=== PATIENT | male | born 1940 | race African-American/Black ===

== ENCOUNTER 2018-10-21 21:13 | Inpatient (IN) | payer MEDICARE ==
--- NOTE | 2018-10-21 23:08 | RAD ---
RIGHT HIP TWO VIEW SERIES: 10/21/18 INDICATION: Fall with pain. FINDINGS: There is generalized heterogeneity of the osseous structures. No displaced fracture of the right hip is seen. IMPRESSION: Diffuse mottled appearance of the osseous structures which does raise suspicion for osseous metastati c disease. No obvious pathologic fracture of the right hip. Recommend followup with whole body bone scan as well as clinical assessment for further evaluation. POS: [facility]
--- NOTE | 2018-10-21 23:10 | RAD ---
LUMBAR SPINE THREE VIEWS: 10/21/18 INDICATION: Fall with pain. FINDINGS: There is generalized increased density in a mottled appearance of the osseous structures. No patholog ic compression fracture of the lumbar spine or significant subluxation visualized. There is a rounded calcific density of the right upper quadrant incidentally noted. This is a chronic finding and stabl e to prior imaging which dates back to 2014. IMPRESSION: Findings suspicious for diffuse osseous metastatic disease. Whole body bone scan is warranted to furt her evaluate. Stable chronic calcific density in the right upper abdomen. POS: SHANTI
--- NOTE | 2018-10-21 23:17 | RAD ---
FRONTAL CHEST LEFT RIB SERIES THREE VIEWS 10/21/18 INDICATION: Followup pain. FINDINGS: The cardiac silhouette is markedly enlarged. There is pleural based density inferiorly at the lateral right chest which could relate to pleural fluid versus pleural thickening. To a lesser extent a brett lar density is seen at the inferior left chest. There is a generalized increased density and mottled appearance of the osseous structures. No displaced rib fracture is seen within the left hemithorax. P rosthetic device overlies the cardiac silhouette. There are metallic clips overlying the upper abdome n. IMPRESSION: 1. Evidence to indicate osseous metastatic disease. Recommended dedicated whole body bone scan. 2. No displaced left rib fractures are seen. 3. Cardiomegaly likely related to CHF. There is associated edema with pleural fluid and pleural thickening bilaterally. POS: [facility]
[2018-10-21 23:59] LABS: ALT (SGPT) 20 U/L (8-55); AST (SGOT) 17 U/L (5-34); Albumin 3.3 g/dL (3.4-4.8); Alkaline Phosphatase 976 U/L (40-150); Anion Gap 20 mmol/L (10-20); BUN (Urea Nitrogen) 79 mg/dL (8.4-25.7); Bilirubin, Total 2.1 mg/dL (0.2-1.2); Calc. Creatinine Clearance 0 mL/min (70-130); Calcium 9.1 mg/dL (7.8-10.44); Carbon Dioxide 18 mmol/L (23-31); Chloride 99 mmol/L (98-107); Estimated GFR-MDRD 30; Glucose 123 mg/dL (83-110); Potassium 4.9 mmol/L (3.5-5.1); Protein, Total 6.3 g/dL (5.8-8.1); Sodium 132 mmol/L (136-145)
[2018-10-22 00:02] LABS: Band 6 % (5-11); Burr Cells SLIGHT = 2-5 cells (100X) (0-1/hpf); Hemoglobin 7.1 g/dL (14.0-18.0); Hypochromia SLIGHT = 6-15 cells (100X) (0-5/hpf); Lymphocytes 26 % (21-51); MDiff Complete? YES; Mean Corpuscular Hemoglobin 24.8 pg (27.0-31.0); Mean Corpuscular Volume 82.9 fL (78.0-98.0); Mean Platelet Volume 11.5 fL (7.4-10.4); Metamyelocyte 2 % (0-0); Microcytosis MODERATE=15-30 cells (100X) (0-5/hpf); Monocytes 11 % (0-10); Myelocyte 1 % (0-0); Neutrophil 54 % (42-75); Nucleated RBC 12 % (0); Ovalocytes SLIGHT = 2-5 cells (100X) (0-1/hpf); Platelet Count 100 thou/uL (130-400); Platelet Morphology Comment Appears Decreased; Polychromasia SLIGHT = 2-3 cells (100X) (0-2/hpf); Red Blood Cell (RBC) Count 2.87 mill/uL (4.70-6.10); White Blood Cell (WBC) Count 4.9 thou/uL (4.8-10.8)
[2018-10-22 00:21] LABS: CKMB 1.4 ng/mL (0-6.6)
[2018-10-22] MEDS ORDERED: Pantoprazole 40 MG VIAL ONE (01:59)
[2018-10-22 02:48] LABS: Bilirubin Negative (Negative); Blood, Urine Negative (Negative); Clarity CLEAR (Clear); Glucose, Urine (Dipstick) Negative (Negative); Leukocyte Negative (Negative); Nitrite Negative (Negative); Protein, Urine (Dipstick) Negative (Neg-Trace); Specific Gravity, Urine 1.016 (1.002-1.036)
[2018-10-22 02:55] LABS: Troponin I 0.042 ng/mL (< 0.028)
[2018-10-22 04:43] VITALS: BMI 30.4
[2018-10-22] MEDS ORDERED: Acetaminophen 325 MG TAB PO PRN (05:25)
[2018-10-22] MEDS: Sodium Chloride 0.9% 1,000 ML IV SCH ×2 (06:10→14:56)
[2018-10-22 07:29] LABS: Troponin I 0.056 ng/mL (< 0.028)
[2018-10-22] MEDS ORDERED: HYDROcodone/Acetaminophen 5/325 mg Tablet PO PRN (08:19)
[2018-10-22] MEDS ORDERED: Non-Formulary Item 1 EACH (Potassium Chloride [Potassium Chloride] 10 MEQ) PO SCH (09:00)
[2018-10-22] MEDS ORDERED: RANITIDINE HCL 150 MG PO SCH (09:00)
[2018-10-22] MEDS ORDERED: CHOLECALCIFEROL 125 MCG PO SCH (09:00)
[2018-10-22] MEDS: Atorvastatin Calcium 40 MG TAB PO SCH (09:15)
[2018-10-22] MEDS: Potassium Chloride 10 MEQ TAB PO SCH (09:15)
[2018-10-22] MEDS: Famotidine 20 MG TAB PO SCH ×2 (09:15→21:11)
[2018-10-22] MEDS: Folic Acid 1 MG TAB PO SCH (09:15)
[2018-10-22] MEDS: Furosemide 80 MG TAB PO SCH ×2 (09:15→21:11)
[2018-10-22] MEDS: Carvedilol 3.125 MG TAB PO SCH ×2 (09:15→21:10)
[2018-10-22 10:43] LABS: Hemoglobin 8.3 g/dL (14.0-18.0); Mean Corpuscular HGB CONC 30.1 g/dL (32.0-36.0); Mean Corpuscular Hemoglobin 24.8 pg (27.0-31.0); Mean Corpuscular Volume 82.3 fL (78.0-98.0); Mean Platelet Volume 5.1 fL (7.4-10.4); Platelet Count 95 thou/uL (130-400); RBC Distribution Width 25.1 % (11.5-14.5); Red Blood Cell (RBC) Count 3.36 mill/uL (4.70-6.10); White Blood Cell (WBC) Count 4.6 thou/uL (4.8-10.8)
[2018-10-22 11:34] LABS: Anisocytosis MODERATE=16-30 cells (100X) (0-5/hpf); Band 9 % (5-11); Hypochromia SLIGHT = 6-15 cells (100X) (0-5/hpf); Lymphocytes 22 % (21-51); MDiff Complete? YES; Metamyelocyte 4 % (0-0); Monocytes 11 % (0-10); Myelocyte 1 % (0-0); Neutrophil 49 % (42-75); Nucleated RBC 11 % (0); Ovalocytes SLIGHT = 2-5 cells (100X) (0-1/hpf); Platelet Morphology Comment Appears Decreased; Polychromasia MODERATE = 3-4 cells (100X) (0-2/hpf); Reactive Lymphocytes 2 % (0-10); Spherocytes SLIGHT = 1-5 cells (100X) (None Seen)
[2018-10-22 11:56] LABS: ALT (SGPT) 19 U/L (8-55); AST (SGOT) 18 U/L (5-34); Albumin 3.3 g/dL (3.4-4.8); Alkaline Phosphatase 950 U/L (40-150); Anion Gap 20 mmol/L (10-20); BUN (Urea Nitrogen) 72 mg/dL (8.4-25.7); Bilirubin, Total 2.3 mg/dL (0.2-1.2); Calc. Creatinine Clearance 40 mL/min (70-130); Calcium 9.5 mg/dL (7.8-10.44); Carbon Dioxide 18 mmol/L (23-31); Chloride 100 mmol/L (98-107); Estimated GFR-MDRD 35; Globulin 3.6 g/dL (2.4-3.5); Glucose 111 mg/dL (83-110); Potassium 4.8 mmol/L (3.5-5.1); Protein, Total 6.9 g/dL (5.8-8.1); Sodium 133 mmol/L (136-145)
--- NOTE | 2018-10-22 21:43 | HP ---
CHIEF COMPLAINT: Right hip pain and back pain and generalized weakness. HISTORY OF PRESENT ILLNESS: This is a 78-year-old gentleman with a relatively recent diagnosis of metastatic bone cancer, who has had several months of worsening back and hip pain who has suffered 2 to 3 falls at home. They were from a standing height where he lost his balance or slipped at home and landed on his right side. The home health nurses were concerned that he fractured his hip and they had him go to the emergency department for further evaluation. In the emergency department, he did not have any acute hip or lumbar fracture. He did complain of some chest wall pain too and the rib x-rays did not reveal any fracture, but all x-rays did show evidence of diffuse metastatic bone disease. The patient was recently admitted in August 2018 for intractable back and hip pain at that time and it was then when he was found to have elevated PSA and metastatic bone disease and bone biopsy have been done revealing non-small cell carcinoma with unknown primary. The patient has followed up with Dr. Casey for Urology and Dr. Salvador Ross for Oncology and is pending a prostate biopsy to rule out a prostate origin of his cancer. The patient has been doing relatively okay at home except for the frequent falls and the patient wants to remain at home as long as possible. He states that his pain is under better control with the fentanyl patches that he has at home, but is anxious to get further workup on his cancer. PAST MEDICAL HISTORY: Remote history of renal cell carcinoma, status post left nephrectomy in 2011; type 2 diabetes; hypertension; hyperlipidemia; [id number] aortic stenosis; congestive heart failure; rheumatoid arthritis; status post aortic valve replacement. PAST SURGICAL HISTORY: Left nephrectomy in 2011, appendectomy in 1986, I and D of postoperative left flank abscess in 2013, aortic valve replacement in 2012. ALLERGIES: TO PENICILLIN AND SULFAMETHOXAZOLE. IMMUNIZATIONS: Up-to-date. FAMILY HISTORY: Father . Mother with hypertension and heart disease. Siblings with hypertension, heart disease, and diabetes. SOCIAL HISTORY: He is . 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 No smoking. No alcohol. He is back to walking, but with assistance. MEDICATIONS: At home include: 1. Furosemide 80 mg b.i.d. 2. Vitamin D3 daily. 3. Folic acid daily. 4. Hydrocodone 5/325 b.i.d. p.r.n. breakthrough pain. 5. Fentanyl patch 25 mcg to be changed every 3 days. 6. Duloxetine 20 mg daily. 7. Carvedilol 3.125 mg b.i.d. 8. Potassium chloride 10 mEq daily. 9. Ranitidine 150 mg b.i.d. 10. Atorvastatin 40 mg daily. REVIEW OF SYSTEMS: As per the history of present illness. PHYSICAL EXAMINATION: GENERAL: He denies any recent fevers, chills, or recent illness. HEENT: He denies headache, visual or hearing changes. Denies congestion or allergy symptoms. CARDIAC: Denies chest pain, shortness of breath, or palpitations. PULMONARY: Denies cough or shortness of breath. GI: Denies nausea, vomiting, abdominal pain, melena, or hematochezia. : History of some BPH symptoms, but no dysuria or hematuria. NEUROLOGIC: Positive weakness. Positive falls at home. No syncope. No seizure activity. MUSCULOSKELETAL: Continues to have chronic back and hip and now anterior chest wall pain. LABORATORY DATA: White blood cell count 4600, hemoglobin and hematocrit 8.3 and 27.7 following a transfusion of 1 unit of packed red blood cells, platelets of 95. Sodium 133, potassium 4.8, chloride 100, CO2 of 18, BUN and creatinine 72 and 2.24 with a GFR of 35, serum glucose of 111, total bilirubin elevated at 2.3, alkaline phosphatase elevated at 950. Troponin I then indeterminate from 0.057, 0.042, and 0.056. Albumin is 3.3. Urinalysis was negative. DIAGNOSTIC DATA: Again, hip, lumbar, and rib x-ray showed no acute fracture, but metastatic bone disease throughout. ASSESSMENT AND PLAN: This is a 78-year-old gentleman with known non-small cell carcinoma of the bone with unknown primary, now with persistent pain in his back and hip. 1. 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 Further workup per Oncology and Urology, possible proceeding with prostate biopsy if seems necessary by Dr. Casey. 2. Bone pain. We will continue fentanyl and hydrocodone for breakthrough pain. 3. Coronary artery disease with history of congestive heart failure. We will continue current medications including carvedilol and Lasix p.r.n. 4. Type 2 diabetes. Due to decreased appetite, it has not been an issue. We will continue to monitor closely. 5. Stage 4 chronic kidney disease. I will continue to monitor. It does not seem like it has worsened since his last admission. 6. Disposition. Discussed with the patient about placement. He desires to remain at home as long as possible. May need to get Order Clerk involved for further assistance with himself and with his at home. Job ID: [id number]
[2018-10-22] MEDS: Fluticasone Propionate Nasal Spray 16 gm Bottle NASAL PRN (22:36)
[2018-10-23] MEDS: HYDROcodone/Acetaminophen 5/325 mg Tablet PO PRN (06:40)
--- NOTE | 2018-10-23 08:42 | PRG ---
DATE OF SERVICE: 10/23/2018 SUBJECTIVE: The patient complains of pain throughout his body, worse in his knees. He states that due to the cold weather, continues have pain in his back and hips and rib cage as well. The patient is wanting to go home and now declining further workup including prostate biopsy and colonoscopy. OBJECTIVE: VITAL SIGNS: Temperature 97.2, pulse of 85, respirations 17, blood pressure 125/60, and pulse oximetry 97% on room air. GENERAL: He is awake and alert, in no acute distress. HEENT: Mucosa is moist. NECK: Supple. HEART: Regular rate and rhythm. LUNGS: Clear bilaterally. ABDOMEN: Soft. EXTREMITIES: With painful range of motion of his legs and arms. Tenderness on his ribcage. LABORATORY DATA: Pending. Stool guaiac was negative yesterday. ASSESSMENT: This is a 78-year-old gentleman with history of type 2 diabetes, hypertension, cardiomyopathy, remote history of a renal cell carcinoma in 2011, now with recently diagnosed metastatic non-small cell carcinoma to the bone with unknown primary. The patient was admitted for worsening bone pain and rule out fracture. He initially wanted to proceed with a prostate biopsy, but now is rethinking the process. We will discuss with Oncology and Urology about options. The patient is willing to discuss with hospice about comfort measures at this time and is most wanting to go home. PLAN: We will consult hospice for evaluation and plan for discharging home. Continue his current medications. I will discuss with Dr. Salvador Ross for Oncology as well as Dr. Casey Addendum: I spoke with Dr. Ross and Carmela. If we can determine whether it is prostate cancer, it is possible that treatment would not too negatively affect the quality of his life. Will discuss with Dr. Casey about possibly proceeding with the biopsy before he goes home with hospice. Job ID: [id number] [facility]
[2018-10-23 08:51] LABS: Anion Gap 18 mmol/L (10-20); BUN (Urea Nitrogen) 67 mg/dL (8.4-25.7); Calc. Creatinine Clearance 41 mL/min (70-130); Carbon Dioxide 17 mmol/L (23-31); Chloride 102 mmol/L (98-107); Estimated GFR-MDRD 36; Glucose 125 mg/dL (83-110); Potassium 4.3 mmol/L (3.5-5.1); Sodium 133 mmol/L (136-145)
[2018-10-23] MEDS: Folic Acid 1 MG TAB PO SCH (10:12)
[2018-10-23] MEDS: Famotidine 20 MG TAB PO SCH ×2 (10:13→20:42)
[2018-10-23] MEDS: Carvedilol 3.125 MG TAB PO SCH ×2 (10:13→20:43)
[2018-10-23] MEDS: Furosemide 80 MG TAB PO SCH ×2 (10:13→20:43)
[2018-10-23] MEDS: Atorvastatin Calcium 40 MG TAB PO SCH (10:13)
[2018-10-23] MEDS: Potassium Chloride 10 MEQ TAB PO SCH (10:13)
[2018-10-23] MEDS: Fluticasone Propionate Nasal Spray 16 gm Bottle NASAL PRN (10:15)
--- NOTE | 2018-10-23 10:40 | PQF ---
MILY HASSAN COLIN ODOM DO [id number] CLINICAL DOCUMENTATION IMPROVEMENT CLARIFICATION FORM: ICD-10 Updated PLEASE DO AN ADDENDUM TO THE PROGRESS NOTE WITH ANY DOCUMENTATION UPDATES OR ADDITIONS AND CARRY THROUGH TO DC SUMMARY. THANK YOU. DATE: 10/23/2018 ATTN: DR. ODOM Please exercise your independent, professional judgment in responding to the clarification form. Clinical indicators are provided on the bottom of this form for your review Please check appropriate box(s): HEART FAILURE..... A. TYPE: [ ] Systolic / HFrEF [ ] Diastolic / HFpEF [ xx ] Combined Systolic / Diastolic B. ACUITY: [ ] Acute [ ] Acute on Chronic [ xx ] Chronic [ ] Other diagnosis [ ] Unable to determine For continuity of documentation, please document condition throughout progress notes and discharge summary. Thank You. CLINICAL INDICATORS - SIGNS / SYMPTOMS / LABS: *10/22-ER: CHEST X-RAY SHOWS CARDIOMEGALY. *10/22-PN: TROPONIN-I THEN INDETERMINATE FROM 0.057, 0.042, AND 0.056. *HX CHF.... HOME MEDS INCLUDE: CARVEDILOL and LASIX 80 BID *HX AVR and MOD TO SEV AORTIC STENOSIS and HTN. RISKS: *10/22-PN: History of CAD and History of CHF *History of non-small cell carcinoma of the bone *DM2 *Chronic Kidney Disease; stage 4 TREATMENTS: *ADMINISTRATION OF HOME MEDICATIONS INCLUDING - LASIX and CARVEDILOL *Close Monitoring Thank You, Layne (This form is maintained as a part of the permanent medical record) 2015 [employer], [employer]. All Rights Reserved Layne Rodriguez RN, CDIS [email or web address] [phone] [facility]
[2018-10-23] MEDS ORDERED: Fleet Enema 133 ML BOT PR SCH (12:21)
[2018-10-23 12:33] LABS: Anisocytosis MODERATE=16-30 cells (100X) (0-5/hpf); Band 14 % (5-11); Hemoglobin 8.3 g/dL (14.0-18.0); Hypochromia MODERATE=16-30 cells (100X) (0-5/hpf); Lymphocytes 21 % (21-51); MDiff Complete? YES; Mean Corpuscular HGB CONC 29.8 g/dL (32.0-36.0); Mean Corpuscular Hemoglobin 24.9 pg (27.0-31.0); Mean Corpuscular Volume 83.6 fL (78.0-98.0); Mean Platelet Volume 6.4 fL (7.4-10.4); Monocytes 12 % (0-10); Myelocyte 1 % (0-0); Neutrophil 50 % (42-75); Nucleated RBC 6 % (0); Platelet Count 91 thou/uL (130-400); Platelet Morphology Comment Appears Decreased; Polychromasia MODERATE = 3-4 cells (100X) (0-2/hpf); RBC Distribution Width 25.1 % (11.5-14.5); Reactive Lymphocytes 2 % (0-10); Red Blood Cell (RBC) Count 3.34 mill/uL (4.70-6.10); White Blood Cell (WBC) Count 3.5 thou/uL (4.8-10.8)
--- NOTE | 2018-10-23 13:09 | CON ---
DATE OF CONSULTATION: 10/23/2018 CONSULTING PHYSICIAN: Dr. Gerhard Renee. CONSULTED PHYSICIAN: Dr. Casey. REASON FOR CONSULTATION: Metastatic cancer, likely prostatic in origin with intractable bone pain. HISTORY OF PRESENT ILLNESS: Mr. Julian is a 78-year-old black male, who is well known to me for a diagnosis of metastatic cancer to multiple sites on his skeleton with history of worsening back and hip pain and reported falls at home. He had seen me as an outpatient and his PSA was 91, and he has a significantly irregular prostate exam. All signs point to that he likely has metastatic prostate cancer, but he does not yet have a tissue diagnosis. He did undergo a bone biopsy demonstrating a non-small cell cancer, which was poorly differentiated, not conclusively specific to the prostate in origin. He was scheduled for an outpatient prostate biopsy, but unfortunately has to come back into the hospital due to intractable pain. He does have a history of renal cell carcinoma in the remote past, but has had no recurrence from this. Dr. Ross is his oncologist and agrees with moving forward with a prostate biopsy in order to start chemo and androgen deprivation. The patient was admitted. He does have chronic kidney disease stage 4, as well as mildly elevated troponin. I have discussed with Dr. Renee and Dr. Renee does not see that this is a significant problem as the patient has a long history of mildly elevated troponins in the past. He has not received any anticoagulation or anti-platelet therapy at this time. When he was last in my office, the patient stated that he was still urinating okay and denied any hematuria. His primary problem is still his pain. He is not having any urinary tract infections. He did have x-rays on this admission, but it did not demonstrate any fractures secondary to his recent fall, but he still has diffuse osseous metastatic disease. PAST MEDICAL HISTORY: 1. History of renal cell carcinoma. 2. Type 2 diabetes. 3. Hypertension. 4. Hyperlipidemia. 5. Aortic stenosis. 6. CHF. 7. Rheumatoid arthritis. 8. Metastatic cancer likely prostatic in origin. PAST SURGICAL HISTORY: 1. Left nephrectomy. 2. Appendectomy. 3. Aortic valve replacement. 4. Left flank abscess incision and drainage. HOME MEDICATIONS: 1. Lasix. 2. Vitamin D3. 3. Folate. 4. [place]. 5. Tramadol. 6. Duloxetine. 7. Carvedilol. 8. Potassium chloride. 9. Ranitidine. 10. Atorvastatin. ALLERGIES: 1. PENICILLIN. 2. SULFAMETHOXAZOLE. FAMILY HISTORY: Noncontributory for prostate cancer, but is significant for hypertension and heart disease. SOCIAL HISTORY: He is . He previously worked as a court officer. He denies smoking, alcohol abuse, or illicit drugs. He does walk with assistance and is able to live at home currently. REVIEW OF SYSTEMS: A 12-point review of systems was reviewed and otherwise negative other than his complaints of bony pains and some weakness. He denies any chest pain, shortness of breath, nausea, vomiting, or fevers. He denies any diarrhea or hematochezia. Remainder of 12-point review of systems was reviewed and otherwise negative. PHYSICAL EXAMINATION: VITAL SIGNS: Temperature 98.4, pulse 88, respirations 18, blood pressure 124/60, and saturation 97% on room air. GENERAL: No apparent distress. Somewhat somnolent, but answering questions appropriately. Well nourished, well developed. HEENT: Normocephalic and atraumatic. Sclerae nonicteric. Pupils symmetric and round. Moist mucous membranes. CARDIOVASCULAR: Regular rate and rhythm. Normal S1 and S2. Systolic murmur. CHEST: No increased work of breathing. Symmetric expansion of lungs. Clear anteriorly. ABDOMEN: Soft, nontender, and nondistended. Positive bowel sounds. : Rectal exam was deferred as this has previously already been done. EXTREMITIES: No clubbing, cyanosis, or edema. The patient is complaining of significant pain in his knees and hips. There is no obvious joint deformities or joint erythema noted. SKIN: Warm and dry. Good turgor. No rashes or lesions. PSYCHIATRIC: Alert and oriented x3. Again, somewhat somnolent, but otherwise appropriate. NEUROLOGIC: Cranial nerves 2 through 12 appear grossly intact. Coordination and gait were not tested. LABORATORY DATA: On laboratory evaluation, the full set of labs are in the [employer] system, which I have reviewed. Of note, the patient's white count is 4.6 with hemoglobin 8.3, platelet count of 95,000. Creatinine is currently 2.17, sodium of 133, troponin was last checked yesterday at 0.056. ASSESSMENT AND PLAN: A 78-year-old black male with likely metastatic prostate cancer based on his history and presentation with previous lab findings. Again, he had a previously reported PSA of 91. Given that he is back in the hospital with recurrent and intractable pain, I think it is best to go ahead and move forward with a prostate biopsy at this time. He is not on any anticoagulation nor his labs sufficiently bad enough to preclude a prostate biopsy, which is relatively a simple procedure. Given his comorbidities, I think we will do this without anesthesia as this was originally planned to be done in the office. I will have the nurse give him an enema stat so that he can have his rectum cleaned out and we will start him on his antibiotic with the Rocephin injection. The patient can then go down for his prostate biopsy, which we will perform here and then he can come back up to the medical floor back to Dr. Renee's care. The biopsy results will probably take anywhere from 3 to 5 days to result. At which time, once we have confirmation that if this is indeed prostate cancer, we can begin him on the chemotherapeutic and androgen deprivation regimens necessary to control his disease and hopefully give him some palliation for his intractable pain. I will continue to follow along and make recommendations as necessary. The risks and benefits have previously been discussed with the patient regarding prostate biopsy, including risks of sepsis, difficulty urinating, significant bleeding, and need for transfusion. I have discussed these again today with the patient and he states he is still willing to go forward as he needs to get his biopsy done. Job ID: [id number]
[2018-10-23] MEDS ORDERED: Lidocaine 1% w/Epinephrine 1:100K 20 ML VIAL ONE (13:55)
[2018-10-23] MEDS ORDERED: Lidocaine 1% (PF) 30 ML VIAL ONE (13:55)
[2018-10-23] MEDS ORDERED: cefTRIAXone\\ROCEPHIN 1 GM VIAL ONE (14:51)
[2018-10-23] MEDS ORDERED: Fentanyl 100 MCG/2 ML VIAL ONE (15:01)
--- NOTE | 2018-10-23 16:11 | OP ---
DATE OF PROCEDURE: 10/23/2018 SERVICES: Urology. PREOPERATIVE DIAGNOSIS: Elevated PSA with metastatic cancer to the bone. POSTOPERATIVE DIAGNOSIS: Elevated PSA with metastatic cancer to the bone. PROCEDURE PERFORMED: Transrectal ultrasound-guided prostate biopsy. INDICATION FOR PROCEDURE: Mr. Julian is a 78-year-old black male with an elevated PSA, diffuse osseous metastatic disease with unknown primary. His PSA is up to 91, and he has a significantly irregular prostate exam. A biopsy of one of the bony lesions demonstrated a poorly-differentiated non-small cell carcinoma, but could not be identified his prostatic origin. As such, we had planned an outpatient prostate biopsy, but the patient was readmitted due to intractable pain and falls. Since he is here, his primary care doctor has requested that we go ahead and perform prostate biopsies, which he is being brought for today. He has received antibiotics and received an enema prior to coming down. He is not taking any blood thinners. DESCRIPTION OF PROCEDURE: After identification of armband and verification of consent, the patient was brought back to the operating room, where he underwent nurse monitoring only. He did not require any anesthesia. He was placed in the left lateral decubitus position. Transrectal ultrasound probe was placed into the patient's rectum and ultrasonography of the prostate performed. The prostate was diffusely irregular with multiple hypoechoic patches. The prostate measured 4.8 cm in length, 3.8 cm in width, and 3.2 cm in height for a volume of 28.4 mL. 1% Xylocaine was injected at 4 points around the prostate for a total of 10 mL injected. After adequate anesthesia, prostate biopsies were taken with prostate biopsy needle for a total of 6 biopsies. During ultrasonography, it was noted that the prostate was extremely fixed and nonmobile, indicating likely locally advanced prostate cancer. The patient had minimal bleeding and the ultrasound was removed. The patient was then returned back to the supine position and taken back to his room in stable condition. COMPLICATIONS: None. ESTIMATED BLOOD LOSS: Minimal. RETAINED TUBES AND DRAINS: None. SPECIMENS: Prostate biopsies. DISPOSITION: The patient will be kept in the hospital under Dr. Renee's service. I will check on him again tomorrow, but the results probably not be available for about 3 to 5 days. We will then coordinate the results with Dr. Ross, his oncologist, as well as primary care physician and arrange for his subsequent treatment, pending confirmation that he does indeed have metastatic prostate cancer. Job ID: [id number]
[2018-10-24] MEDS: Potassium Chloride 10 MEQ TAB PO SCH (07:53)
[2018-10-24] MEDS: Carvedilol 3.125 MG TAB PO SCH (07:53)
[2018-10-24] MEDS: Atorvastatin Calcium 40 MG TAB PO SCH (07:53)
[2018-10-24] MEDS: Folic Acid 1 MG TAB PO SCH (07:53)
[2018-10-24] MEDS: Furosemide 80 MG TAB PO SCH ×2 (07:54→15:01)
[2018-10-24] MEDS: Famotidine 20 MG TAB PO SCH (08:06)
[2018-10-24] MEDS: HYDROcodone/Acetaminophen 5/325 mg Tablet PO PRN (08:11)
--- NOTE | 2018-10-24 08:44 | PRG ---
DATE OF SERVICE: 10/24/2018 SUBJECTIVE: The patient is complaining of bilateral knee pain that seems to be getting worse over the past two days. Pain in his back and hip seem to be better, has rib cage pain, has not bother him as much. He complains of congestion in his nasal area, but no chest pain or shortness of breath. He tolerated the biopsies yesterday and is anxious for the results. OBJECTIVE: VITAL SIGNS: Temperature 97.4, pulse of 87 to 93, respirations 18, blood pressure 109/66, pulse ox was 93% on 2 L. GENERAL: He is awake and alert, in no acute distress. Speech is clear. NECK: Supple. HEART: Regular rate and rhythm. LUNGS: Clear. ABDOMEN: Obese and soft. EXTREMITIES: No edema. He has exquisite tenderness in both knees, some warmth, but dressings are placed. Effusion bilaterally. LABORATORY DATA: Pending from this morning. Prostate biopsies are pending. ASSESSMENT AND PLAN: This is a 78-year-old gentleman with a history of metastatic non-small cell carcinoma of unknown primary, history of renal cell carcinoma and likely prostate carcinoma at this time with the biopsy results pending. 1. Metastatic non-small cell carcinoma to the bone. Awaiting prostate biopsies. 2. Bone pain. We will continue pain medicines with fentanyl and hydrocodone. 3. Knee pain. Possible history of gout as per Dr. Carson. We will check uric acid level as well as x-rays. Also has a history of rheumatoid arthritis. 4. Coronary artery disease with history of congestive heart failure. We will continue his current treatment. 5. Stage 4 chronic kidney disease that appears to be stable. 6. Anemia has improved after 1 unit of packed red blood cells two days ago. We will continue to monitor for any further bleeding. DISPOSITION: Hopefully being able to go home tomorrow. The patient wishes to speak with hospice about different options and we will ensure that happens prior to his discharge home. Job ID: [id number]
--- NOTE | 2018-10-24 09:44 | RAD ---
LEFT KNEE 4 VIEWS: HISTORY: Left knee pain. FINDINGS: There are marked degenerative changes manifested by osteophyte formation and joint space narrowing mo st prominent in the medial tibiofemoral and patellofemoral compartments. No acute fracture or disloc ation or bony destruction is seen. There is an old avulsion fracture of the lateral tibial spine. IMPRESSION: Left knee osteoarthritis. POS: [facility]
--- NOTE | 2018-10-24 09:47 | RAD ---
RIGHT KNEE FOUR VIEWS OBTAINED WITH PORTABLE TECHNIQUE: INDICATIONS: Knee pain. FINDINGS: Moderate degenerative changes are noted. There is loss of medial joint space. There is spurring fro m all joint compartments, with spurring seen from the femoral condyles, the tibial condyles, and the tibial spines. Prominent spurring and loss of joint space at the patellofemoral joint. Evidence of joint effusion i s seen in the suprapatellar region. IMPRESSION: Moderate to severe degenerative changes, right knee, with joint effusion. POS: OFF
[2018-10-24 10:03] LABS: Anion Gap 19 mmol/L (10-20); BUN (Urea Nitrogen) 63 mg/dL (8.4-25.7); Calc. Creatinine Clearance 41 mL/min (70-130); Calcium 8.9 mg/dL (7.8-10.44); Carbon Dioxide 19 mmol/L (23-31); Chloride 101 mmol/L (98-107); Estimated GFR-MDRD 36; Glucose 121 mg/dL (83-110); Potassium 4.4 mmol/L (3.5-5.1); Sodium 135 mmol/L (136-145)
[2018-10-24] MEDS: Fluticasone Propionate Nasal Spray 16 gm Bottle NASAL PRN (10:13)
[2018-10-24] MEDS ORDERED: Colchicine 0.6 MG TAB PO SCH (11:00)
[2018-10-24 11:07] LABS: Band 6 % (5-11); Elliptocytes SLIGHT = 2-5 cells (100X) (0-1/hpf); Eosinophils 2 % (0-10); Hemoglobin 8.2 g/dL (14.0-18.0); Hypochromia SLIGHT = 6-15 cells (100X) (0-5/hpf); Lymphocytes 10 % (21-51); MDiff Complete? YES; Mean Corpuscular HGB CONC 30.4 g/dL (32.0-36.0); Mean Corpuscular Hemoglobin 25.9 pg (27.0-31.0); Mean Corpuscular Volume 85.2 fL (78.0-98.0); Mean Platelet Volume 6.3 fL (7.4-10.4); Monocytes 16 % (0-10); Neutrophil 66 % (42-75); Nucleated RBC 8 % (0); Ovalocytes SLIGHT = 2-5 cells (100X) (0-1/hpf); Platelet Count 87 thou/uL (130-400); Platelet Morphology Comment Appears Decreased; Polychromasia MODERATE = 3-4 cells (100X) (0-2/hpf); RBC Distribution Width 25.6 % (11.5-14.5); Red Blood Cell (RBC) Count 3.16 mill/uL (4.70-6.10); White Blood Cell (WBC) Count 4.8 thou/uL (4.8-10.8)
[2018-10-24 17:30] VITALS: TEMP 97.7
[2018-10-24 18:22] VITALS: BP 109/55
--- NOTE | 2018-10-25 00:58 | DIS ---
DATE OF ADMISSION: 10/22/2018 DATE OF DISCHARGE: 10/24/2018 ADMISSION DIAGNOSIS: Worsening hip pain and back pain. DISCHARGE DIAGNOSIS: Metastatic prostate cancer to the bone. CONSULTATIONS: Dr. Casey for Urology, x-rays of the hip, spine and ribs, prostate biopsy, knee x-ray. HOSPITAL COURSE: This is a 78-year-old gentleman with a history of renal cell carcinoma status post nephrectomy, type 2 diabetes, hypertension, hyperlipidemia, congestive heart failure, rheumatoid arthritis status post aortic valve replacement, who was recently diagnosed with metastatic bone cancer. He underwent a bone biopsy on his last admission, which revealed non-small cell carcinoma of unknown primary. He was scheduled for outpatient prostate biopsy with Dr. Casey, but was readmitted this time for worsening hip pain following a fall at home. In the ED, he underwent x-rays which showed no fracture but was not able to be discharged home due to his intractable pain. His pain was managed with analgesia and the pain was doing better. It was discussed with Dr. Ross and Dr. Casey about possibly proceeding with hospice. After those discussions, it was decided to go ahead with the prostate biopsies to get assure definitive diagnosis as far as this is the source of his cancer. The family and the patient agreed to proceed with prostate biopsy, and Dr. Casey felt like his risk was satisfactory at this time. He underwent prostate biopsy with no complications. He tolerated it well and the biopsy did reveal prostate adenocarcinoma. The patient remained stable throughout his hospitalization. He did complain of sudden onset of bilateral knee pain, worse in the right with knee effusion. He does have a history of gout and was treated by Dr. Carson in the past. His x-rays just revealed degenerative joint disease with effusion on the right. He did have elevated uric acid level and was given a dose of colchicine with significant improvement of his knee pain. After discussion with the son and the patient has decided that he wanted to go home with outpatient followup with Dr. Casey, as well as with Dr. Ross to discuss treatment options. He was discharged home in good condition. DISCHARGE PHYSICAL EXAMINATION/OBJECTIVE: VITAL SIGNS: Temperature 98.0, pulse of 84, respirations 18, blood pressure 103/61, and pulse ox is 94% on room air. GENERAL: He is awake and alert. No acute distress. Speech is clear. NECK: Supple. HEART: Regular rate and rhythm. LUNGS: Clear. ABDOMEN: Obese, soft. EXTREMITIES: With painful range of motion of his knees, but improved from this morning. Still has slight effusion in the right knee. LABORATORY DATA: Sodium 135, potassium 4.4, chloride 101, CO2 of 19, BUN and creatinine 63 and 2.17 with a GFR of 36. Serum glucose was 121. Uric acid was elevated at 18, calcium of 8.9. Urinalysis was normal. White blood cell count 4800. Hemoglobin and hematocrit 8.2 and 26.9, which is stable after his transfusion. Platelet count of 87. DISCHARGE MEDICATIONS: Include: 1. [place] 5/325 b.i.d. p.r.n. severe pain. 2. Lipitor 40 mg daily. 3. Carvedilol 3.125 mg b.i.d. 4. Cymbalta 20 mg daily. 5. Pepcid 20 mg b.i.d. 6. Duragesic patch 25 mcg every 3 days. 7. Flonase daily. 8. Folic acid 1 mg daily. 9. Lasix 80 mg b.i.d. 10. Potassium chloride 10 mEq daily. 11. Colchicine 0.6 mg daily p.r.n. gout pain. FOLLOWUP INSTRUCTIONS: The patient is to follow up with Dr. Ross in 1 to 2 weeks. Follow up with Dr. Casey in 2 weeks. Follow up with myself in 1 to 2 weeks as well. Job ID: [id number]
== END 2018-10-24 18:49 | disposition home health service (06) | DRG 948 ==
LOC: ERS 21:13 → 2NO 10-22 04:04 → T4-B 10-23 19:05
PROVIDERS: ADMIT Family Medicine; ATTEND Family Medicine
PROC: 30233N1 Transfusion of Nonautologous Red Blood Cells into Peripheral Vein, Percutaneous Approach (ICD-10-PCS; 2018-10-22)
PROC: 0VB07ZX Excision of Prostate, Via Natural or Artificial Opening, Diagnostic (ICD-10-PCS; principal; 2018-10-23)
DX: G89.3 Neoplasm related pain (acute) (chronic) (principal); C79.51 Secondary malignant neoplasm of bone; I13.0 Hypertensive heart and chronic kidney disease with heart failure and stage 1 through stage 4 chronic kidney disease, or unspecified chronic kidney disease; N18.4 Chronic kidney disease, stage 4 (severe); I50.42 Chronic combined systolic (congestive) and diastolic (congestive) heart failure; C61 Malignant neoplasm of prostate; E78.5 Hyperlipidemia, unspecified; E11.22 Type 2 diabetes mellitus with diabetic chronic kidney disease; M06.9 Rheumatoid arthritis, unspecified; I25.10 Atherosclerotic heart disease of native coronary artery without angina pectoris; D64.9 Anemia, unspecified; M10.9 Gout, unspecified; M17.11 Unilateral primary osteoarthritis, right knee; R29.6 Repeated falls; Z85.528 Personal history of other malignant neoplasm of kidney; Z90.5 Acquired absence of kidney; Z95.2 Presence of prosthetic heart valve; Z88.0 Allergy status to penicillin; Z88.2 Allergy status to sulfonamides
CPT/HCPCS: 36415; 36416; 36430; 72100; 80048; 80053; 81003; 82274; 82553; 84484; 84550; 85025; 86850; 86900; 86901; 88305; 93005; 96361; 96374; 99152; 99153; C9113; J0696; J2001; J3010; P9016